=== PATIENT | male | born 1955 | race Caucasian/White ===

== ENCOUNTER 2016-12-25 18:31 | Emergency (ER) | payer OTHER ==
[~2016-12-25] VITALS: Ht 185.4 cm; Wt 76.2 kg
--- NOTE | ~2016-12-25 | EKG ---
[address] [place] [address] ELECTROCARDIOGRAM REPORT Name: ALEA NUÑEZ Room #: [facility] Hagan#: [id number] Admission: 12/25/16 Attend Phys: Discharge: 12/25/16 Date of : 59 Report #: [id number] THIS REPORT FOR: //name// [facility] ED Test Date: 2016-12-25 Test Time: 18:45:30 Pat Name: ALEA NUÑEZ Department: Room: Gender: Plater Helper: Gabriele SEAY : 1955 Requested By: Lidya Oro Order Number: [id number] MD: Tono Dillard Measurements Intervals [place] Rate: 85 P: WI: QRS: 67 QRSD: 109 T: 35 QT: 352 QTc: 419 Interpretive Statements Sinus rhythm No previous ECG available for comparison Electronically Signed On 12-26-2016 11:24:30 CDT by Tono Dillard [email or web address] <ELECTRONICALLY SIGNED> By: Tono Dillard MD 12/26/16 1124 1845 1845 Tono [email or web address] MD /EPI
[2016-12-25 19:36] LABS: HEMATOCRIT 38.2 % (42.0-52.0); HEMOGLOBIN 12.9 gm/dL (14.0-18.0); MANUAL DIFF YES; MCH 28.2 pg (26.0-34.0); MCHC 33.7 g/dL (28.0-37.0); MCV 83.6 fL (80.0-100.0); PLATELET COUNT 249 thou/uL (150-400); RBC 4.57 mil/uL (4.50-6.00); RDW 12.4 % (10.5-14.5); WBC 9.5 thou/uL (4.0-11.0)
[2016-12-25 19:39] LABS: AMP/METHAMP Negative (Negative); BARBITURATES Negative (Negative); BENZODIAZEPINES Negative (Negative); COCAINE Negative (Negative); METHADONE Negative (Negative); OPIATES Negative (Negative); PCP Negative (Negative); THC Negative (Negative)
[2016-12-25 19:42] LABS: ANION GAP 8 mmol/L (7-16); BUN 13 mg/dL (7-18); CALCIUM 8.7 mg/dL (8.5-10.1); CHLORIDE 103 mmol/L (98-107); CO2 30 mmol/L (21-32); CREATININE 1.2 mg/dL (0.6-1.3); GLUCOSE 110 mg/dL (70-99); POTASSIUM 4.2 mmol/L (3.5-5.1); SODIUM 141 mmol/L (136-145)
[2016-12-25 19:49] LABS: PROTIME 10.7 Seconds (9.3-11.4)
[2016-12-25 19:59] LABS: ALBUMIN 3.4 g/dL (3.4-5.0); ALKALINE PHOSPHATASE 92 U/L (46-116); NT-PRO BRAIN NAT PEPTIDE 95 pg/mL (<300); SGOT 74 U/L (15-37); SGPT 91 U/L (30-65); TOTAL BILIRUBIN 0.6 mg/dL (<0.1-1.0); TOTAL PROTEIN 7.2 g/dL (6.4-8.2); TROPONIN-I < 0.04 ng/mL (<0.04-0.07)
[2016-12-25 20:02] LABS: ABSOLUTE NEUTROPHILS 6.3 thou/uL (1.4-8.2); TOTAL CELL COUNT 100
[2016-12-25 21:58] VITALS: BP 136/82
== END 2016-12-25 22:00 | disposition home or self-care (01) ==
LOC: ER 18:31
PROVIDERS: Emergency Medicine
DX: R56.9 Unspecified convulsions (principal); R41.82 Altered mental status, unspecified; B34.9 Viral infection, unspecified